=== PATIENT | female | born 1965 | race African-American/Black ===

== ENCOUNTER → 2017-02-10 | Outpatient (CLI) | payer OTHER ==
[~2017-02-10] MED LIST: ADVI200T17 PO; GABA600T PO; MEDR4PAK PO; METH125I2 IM; MULT1TAB84 PO; MULTTAB67 PO; ROBA750T PO
[2017-02-10 08:28] LABS: AUTOMATED NEUTROPHIL # 2.5 TH/MM3 (1.8-7.7); BASOPHIL % 0.4 % (0.0-2.0); EOSINOPHIL % 0.7 % (0.0-4.0); HEMATOCRIT 38.4 % (35.0-46.0); HEMO FLAGS DIFF FINAL; LYMPH % 47.7 % (9.0-44.0); LYMPHOCYTE # 2.8 TH/MM3 (1.0-4.8); MEAN CELL VOLUME 95.2 FL (80.0-100.0); MEAN CORPUSCULAR HEMOGLOBIN 32.5 PG (27.0-34.0); MEAN CORPUSCULAR HGB CONC 34.1 % (32.0-36.0); MONO % 7.8 % (0.0-8.0); NEUT % 43.4 % (16.0-70.0); PLATELET COUNT 148 TH/MM3 (150-450); RED BLOOD COUNT 4.03 MIL/MM3 (4.00-5.30); RED CELL DISTRIBUTION WIDTH 13.4 % (11.6-17.2); WHITE BLOOD COUNT 5.8 TH/MM3 (4.0-11.0)
[2017-02-10 08:58] LABS: ALKALINE PHOSPHATASE 76 U/L (45-117); HDL CHOLESTEROL 84.2 MG/DL (40.0-60.0); TOTAL BILIRUBIN ADULT 0.3 MG/DL (0.2-1.0)
[2017-02-10 09:02] LABS: ALT (GPT) 21 U/L (10-53); ANION GAP 7 MEQ/L (5-15); AST (GOT) 15 U/L (15-37); BICARBONATE 27.9 MEQ/L (21.0-32.0); BLOOD UREA NITROGEN 11 MG/DL (7-18); CHLORIDE 105 MEQ/L (98-107); GLOMERULAR FILTRATION RATE 72 ML/MIN (>89); GLUCOSE,FASTING 109 MG/DL (74-99); LDL CHOLESTEROL 117 MG/DL (0-99); POTASSIUM 4.4 MEQ/L (3.5-5.1); SODIUM (NA) 140 MEQ/L (136-145)
[2017-02-10 12:26] LABS: HEMOGLOBIN A1a 1.3 %; HEMOGLOBIN A1b 0.8 %; HEMOGLOBIN Ao 83.7 %; HEMOGLOBIN F 2.3 %; HEMOGLOBIN P3 3.6 %
== END ==
LOC: CLAB 07:44
PROVIDERS: ATTEND Family Medicine
DX: M19.90 Unspecified osteoarthritis, unspecified site (principal); R73.02 Impaired glucose tolerance (oral); E78.5 Hyperlipidemia, unspecified; E66.01 Morbid (severe) obesity due to excess calories
CPT/HCPCS: 36415; 80053; 80061; 83036; 84443; 85025

== ENCOUNTER 2017-03-03 16:35 | Emergency (ER) | payer OTHER ==
[~2017-03-03] VITALS: Ht 152.4 cm; Wt 132.5 kg
[~2017-03-03 16:35] MED LIST changes: -ADVI200T17 PO; -MEDR4PAK PO; -METH125I2 IM; -MULTTAB67 PO
[2017-03-03 16:37] VITALS: BP 188/101; PULSE 52; RESP 18; TEMP 98.8; O2SAT 99
--- NOTE | 2017-03-03 17:18 | PD ---
HPI . acute on chronic back pain Chief Complaint: Back/ Neck Pain or Injury Time Seen by Provider: 17:17 Travel History International Travel<30 days: No Contact w/Intl Traveler<30days: No Traveled to known affect area: No History of Present Illness HPI 51 yr old female with chronic pain in her back and shoulder here with complaints of acute on chronic pain. Patient tells me that she had seen Dr. Eastman in the community [facility] on February 24, 2017 and she is already taking Robaxin and gabapentin without much relief. She tells me that she had MRI done and that she needs surgery, but she does not want to go under the knife. She denies any bowel or bladder dysfunction. She has no saddle anesthesia. She is accompanied by her mother. She denies any recent injury. PFSH Past Medical History Arthritis: Yes Asthma: Yes (20 YEARS AGO) Anxiety: No Depression: No Heart Rhythm Problems: No Cancer: No Cardiovascular Problems: Yes High Cholesterol: No Chest Pain: No Congestive Heart Failure: No COPD: No Diabetes: Yes (TYPE II) Diminished Hearing: No Endocrine: Yes Genitourinary: No Hepatitis: Yes (HEP B) Hiatal Hernia: No Hypertension: Yes Immune Disorder: No Musculoskeletal: Yes (HERNIATED DICS IN LOWER BACK) Neurologic: No Psychiatric: Yes (CLAUSTROPHOBIC) Reproductive: No Respiratory: Yes (SLEEP APNEA USES C PAP) Sleep Apnea: Yes (USES CPAP) Thyroid Disease: No ?: Not Menopausal: Yes : 3 Para: 2 Miscarriage: 1 Ectopic : Yes Past Surgical History Abdominal Surgery: No Cardiac Surgery: No Section: Yes Ear Surgery: No Endocrine Surgery: No Eye Surgery: No Genitourinary Surgery: No Gynecologic Surgery: Yes Hysterectomy: Yes Joint Replacement: Yes (KNEE LEFT) Oral Surgery: No Pacemaker: No Thoracic Surgery: No Other Surgery: Yes Social History Alcohol Use: No Tobacco Use: Yes (STATES IS QUITTING) Substance Use: No Allergies-Medications (Allergen,Severity, Reaction): Coded Allergies: Aleve (Verified Allergy, Severe, STOMACH BLEEDS, 02/24/17) Aspirin (Verified Allergy, Severe, STOMACH BLEEDS, 02/24/17) Ibuprofen (Verified Allergy, Severe, STOMACH BLEEDS, 02/24/17) Lobster (Verified Allergy, Severe, SOB, SWELLING, 02/24/17) Naprosyn (Verified Allergy, Severe, STOMACH BLEEDS, 02/24/17) Shrimp (Verified Allergy, Severe, SOB, SWELLING, 02/24/17) Toradol (Verified Allergy, Severe, STOMACH BLEEDS, 02/24/17) Tramadol (Verified Allergy, Severe, Bleeding, 02/24/17) Reported Meds & Prescriptions Reported Meds & Active Scripts Active Robaxin (Methocarbamol) 750 Mg Tab 1,500 Mg PO HS Gabapentin 600 Mg Tab 2 Tab PO TID Reported Multivitamin Adults (Multiple Vitamins W/ Minerals) 1 Tab 1 Tab PO DAILY Review of Systems General / Constitutional: No: Fever Eyes: No: Visual changes HENT: No: Headaches Cardiovascular: No: Chest Pain or Discomfort Respiratory: No: Shortness of Breath Gastrointestinal: No: Abdominal Pain Genitourinary: No: Dysuria Musculoskeletal: Positive: Pain (chronic back ) Skin: No Rash Neurologic: No: Weakness Psychiatric: No: Depression Endocrine: No: Polydipsia Hematologic/Lymphatic: No: Easy Bruising Physical Exam Narrative GENERAL: AAO x 3, no acute distress, Well-nourished, well-developed patient. SKIN: Warm and dry. No visible rashes or bruising. HEAD: Normocephalic and atraumatic. EYES: No scleral icterus. No injection or drainage. ENT: No nasal drainage noted. Airway patent. NECK: Supple, trachea midline. No JVD. CARDIOVASCULAR: Regular rate and rhythm without murmurs, gallops, or rubs. RESPIRATORY: Breath sounds equal bilaterally. No accessory muscle use. No rhonchi or rales. GASTROINTESTINAL: visual inspection normal EXTREMITIES: No cyanosis or edema. BACK: Nontender without obvious deformity. PSYCH: AAO x 3, normal affect. Data Data Last Documented VS Vital Signs Date Time Temp Pulse Resp B/P Pulse Ox O2 Delivery O2 Flow Rate FiO2 03/03/17 16:37 98.8 52 18 188/101 99 Room Air MDM Medical Decision Making Medical Screen Exam Complete: Yes Emergency Medical Condition: No Medical Record Reviewed: Yes Differential Diagnosis Acute on chronic pain, lumbar radiculopathy, lumbago, l Narrative Course A medical screening exam was performed: At the time of evaluation the presenting medical condition was determined not to be of an emergent nature. The patient was given the option of receiving additional care, but declined. Patient was given options for additional community resources from which to obtain care. The Patient Has Been advised to seek medical attention for their presenting complaint. The patient has been advised to return to the ER at any time if an emergent condition develops. Patient requesting steroid injection. I advised her to go to community clinic as they could provide this. She will go tomorrow. [facility] and they would be willing to see her tomorrow. Diagnosis Primary Impression: Encounter for medical screening examination Condition: Stable Chelly Rojas March 03, 2017 17:18
[2017-03-04] MEDS ORDERED: MULTTAB67 PO (10:19)
[2017-03-04] MEDS ORDERED: METH125I2 IM (12:38)
[2017-04-09] MEDS ORDERED: MEDR4PAK PO (11:40)
== END 2017-03-03 17:20 | disposition left against medical advice (07) ==
LOC: NEPK 16:35
DX: G89.29 Other chronic pain (principal)
CPT/HCPCS: 99281

== ENCOUNTER → 2017-04-12 | Outpatient (CLI) | payer OTHER ==
[~2017-04-12] MED LIST changes: +MEDR4PAK PO; -MULT1TAB84 PO; +MULTTAB67 PO
--- NOTE | 2017-04-12 09:22 | RADRPT ---
EXAM DATE/TIME: 04/12/2017 08:54 [facility] COMPARISON: No previous studies available for comparison. INDICATIONS : Patient states he fell 4 months ago, neck pain. MEDICAL HISTORY : None. SURGICAL HISTORY : None. ENCOUNTER: Initial ACUITY: 4 - 6 months PAIN SCORE: 7/10 LOCATION: Bilateral Cervical FINDINGS: Five view examination was performed. There is normal alignment and curvature of the vertebral bodies down to the level of C7. No evidence of fracture or subluxation. Vertebral body height is normal. Multilevel degenerative spondylosis most prominently at C4-C7 were minimal disc space loss and anter ior osteophyte formation. There is mild bony neuroforaminal narrowing at C7-T1. Remaining bony neural foramina are maintained. The prevertebral soft tissues are of normal thickness. The atlanto-axial a rticulation is intact. The visualized lung apices are clear. CONCLUSION: 1. No acute fracture or subluxation. 2. Mild multilevel degenerative spondylosis most prominently at C4-C7. Rick Galvan MD on April 12, 2017 at 9:16 Board Certified Radiologist. This report was verified electronically.
--- NOTE | 2017-04-12 09:26 | RADRPT ---
EXAM DATE/TIME: 04/12/2017 09:03 [facility] COMPARISON: No previous studies available for comparison. INDICATIONS : Patient states she fell 4 months ago, unable to lift arm without pain. MEDICAL HISTORY : None. SURGICAL HISTORY : None. ENCOUNTER: Initial ACUITY: 4 - 6 months PAIN SCORE: 7/10 LOCATION: Left Shoulder FINDINGS: Multiple view examination of the left shoulder demonstrates no evidence of fracture or dislocation. The glenohumeral and acromioclavicular joints are maintained. There is normal range of motion betwee n internal and external rotation. Bony mineralization is normal. CONCLUSION: 1. No acute fracture or subluxation. Rick Galvan MD on April 12, 2017 at 9:20 Board Certified Radiologist. This report was verified electronically.
== END ==
LOC: HRAD 08:37
PROVIDERS: ATTEND Family Medicine
DX: M79.602 Pain in left arm (principal); M25.512 Pain in left shoulder; M54.2 Cervicalgia
CPT/HCPCS: 72050; 73030

== ENCOUNTER 2018-01-27 20:52 | Emergency (ER) | payer MEDICAID, OTHER ==
[~2018-01-27] VITALS: Ht 152.4 cm; Wt 138.0 kg
[~2018-01-27 20:52] MED LIST changes: +AMIT50TA3 PO; +DICL1GEL3 TOPICAL
[2018-01-27 21:22] VITALS: BP 155/91; PULSE 60; RESP 20; TEMP 98.1; O2SAT 97
--- NOTE | 2018-01-28 00:04 | RADRPT ---
EXAM DATE/TIME: 01/27/2018 23:35 [facility] COMPARISON: No previous studies available for comparison. INDICATIONS : Patient fell 1 year ago and complains of left sided chest pain. No recent injuries. MEDICAL HISTORY : None. SURGICAL HISTORY : None. ENCOUNTER: Initial ACUITY: 1 year PAIN SCORE: 9/10 LOCATION: chest FINDINGS: PA and lateral views of the chest demonstrate the lungs to be symmetrically aerated without evidence of mass, infiltrate or effusion. The cardiomediastinal contours are unremarkable. Osseous structure s are intact. The scoliotic spine. CONCLUSION: No acute disease. Lorne Maldonado Jr., MD on January 28, 2018 at 0:02 Board Certified Radiologist. This report was verified electronically.
--- NOTE | 2018-01-28 00:04 | RADRPT ---
EXAM DATE/TIME: 01/27/2018 23:38 [facility] COMPARISON: No previous studies available for comparison. INDICATIONS : Patient fell 1 year ago and complains of left humerus pain. No recent injuries. MEDICAL HISTORY : None. SURGICAL HISTORY : None. ENCOUNTER: Initial ACUITY: 1 year PAIN SCORE: 9/10 LOCATION: Left Humerus FINDINGS: Two view examination of the left humerus demonstrates no evidence of fracture or dislocation. Bony m ineralization is normal. The soft tissue structures are intact. CONCLUSION: Unremarkable examination of the left humerus. Lorne Maldonado Jr., MD on January 28, 2018 at 0:03 Board Certified Radiologist. This report was verified electronically.
--- NOTE | 2018-01-28 00:08 | PD ---
HPI Chief Complaint: Fall Time Seen by Provider: 22:58 Travel History International Travel<30 days: No Contact w/Intl Traveler<30days: No Traveled to known affect area: No History of Present Illness HPI 52-year-old female arrives to the ER describing pain in the left arm and left chest wall anteriorly and posteriorly for one year. It started when she had a fall from her house. She reports having undergone physical therapy and multiple x-rays. Evidently an MRI of the cervical spine was performed. The patient has changed primary care providers 3 times now and has been unable to leave a diagnosis to her satisfaction. Today the patient attempted to pull walker out of the transport vehicle and since attempted to do so has had worsening normal left arm and left chest pain. PFSH Past Medical History Arthritis: Yes Asthma: Yes (20 YEARS AGO) Anxiety: No Depression: No Heart Rhythm Problems: No Cancer: No Cardiovascular Problems: Yes High Cholesterol: No Chest Pain: No Congestive Heart Failure: No COPD: No Diabetes: Yes (TYPE II) Patient Takes Glucophage: No Diminished Hearing: No Endocrine: Yes Genitourinary: No Hepatitis: Yes (HEP B) Hiatal Hernia: No Hypertension: Yes Immune Disorder: No Musculoskeletal: Yes (HERNIATED DICS IN LOWER BACK) Neurologic: No Psychiatric: Yes (CLAUSTROPHOBIC) Reproductive: No Respiratory: Yes (SLEEP APNEA USES C PAP) Sleep Apnea: Yes (USES CPAP) Thyroid Disease: No ?: Not Menopausal: Yes : 3 Para: 2 Miscarriage: 1 Ectopic : Yes Past Surgical History Abdominal Surgery: No Cardiac Surgery: No Section: Yes Ear Surgery: No Endocrine Surgery: No Eye Surgery: No Genitourinary Surgery: No Gynecologic Surgery: Yes Hysterectomy: Yes Joint Replacement: Yes (KNEE LEFT) Oral Surgery: No Pacemaker: No Thoracic Surgery: No Other Surgery: Yes Social History Alcohol Use: No Tobacco Use: Yes (STATES IS QUITTING) Substance Use: No Allergies-Medications (Allergen,Severity, Reaction): Coded Allergies: aspirin (Unverified Allergy, Severe, STOMACH BLEEDS, 01/27/18) ibuprofen (Unverified Allergy, Severe, STOMACH BLEEDS, 01/27/18) ketorolac (Unverified Allergy, Severe, STOMACH BLEEDS, 01/27/18) naproxen (Unverified Allergy, Severe, STOMACH BLEEDS, 01/27/18) shellfish derived (Unverified Allergy, Severe, SOB, SWELLING, 01/27/18) shrimp (Unverified Allergy, Severe, SOB, SWELLING, 01/27/18) tramadol (Unverified Allergy, Severe, Bleeding, 01/27/18) Reported Meds & Prescriptions Reported Meds & Active Scripts Active Amitriptyline (Amitriptyline HCl) 50 Mg Tab 50 Mg PO HS Diclofenac Topical 3 % Gel 1 Applic TOPICAL BID Medrol Dosepak (Methylprednisolone) 4 Mg Dspk 4 Mg PO DIRECTED Per Pharmacist direction Robaxin (Methocarbamol) 750 Mg Tab 1,500 Mg PO HS Gabapentin 600 Mg Tab 2 Tab PO TID Reported Multiple Vitamin 1 Tab 1 Tab PO DAILY Review of Systems Except as stated in HPI: all other systems reviewed are Neg General / Constitutional: No: Fever Eyes: No: Blurred Vision Cardiovascular: No: Irregular Rhythm Physical Exam Narrative GENERAL: 52-year-old female pleasant well-nourished well-developed mild to moderate distress secondary to pain and/or anxiety Vital Signs Date Time Temp Pulse Resp B/P (MAP) Pulse Ox O2 Delivery O2 Flow Rate FiO2 01/27/18 21:22 98.1 60 20 155/91 (112) 97 SKIN: Warm and dry. HEAD: Atraumatic. Normocephalic. EYES: Pupils equal and round. No scleral icterus. No injection or drainage. ENT: No nasal bleeding or discharge. Mucous membranes pink and moist. NECK: Trachea midline. No JVD. CARDIOVASCULAR: Regular rate and rhythm. 2+ radial artery pulse bilaterally. RESPIRATORY: Involving the anterior chest and posterior chest is no significant overlying skin abnormality or focus of tenderness. GASTROINTESTINAL: Abdomen soft, non-tender, nondistended. Hepatic and splenic margins not palpable. MUSCULOSKELETAL: Extremities without clubbing, cyanosis, or edema. No obvious deformities. NEUROLOGICAL: Awake and alert. No obvious cranial nerve deficits. Motor grossly within normal limits. Five out of 5 muscle strength in the arms and legs. Normal speech. PSYCHIATRIC: Appropriate mood and affect; insight and judgment normal. Data Data Last Documented VS Vital Signs Date Time Temp Pulse Resp B/P (MAP) Pulse Ox O2 Delivery O2 Flow Rate FiO2 01/27/18 21:22 98.1 60 20 155/91 (112) 97 Orders Orders Chest, Pa & Lat (01/27/18 23:17) Humerus (Min 2vws) (01/27/18 ) Ed Discharge Order (01/28/18 00:09) [facility] Medical Decision Making Medical Screen Exam Complete: Yes Emergency Medical Condition: Yes Medical Record Reviewed: Yes Differential Diagnosis Scoliosis, rib contusion, muscle strain, myofascial strain Narrative Course Last Impressions Chest X-Ray 01/27/18 2317 Signed Impressions: Service Date/Time: January 23:35 - CONCLUSION: No acute disease. Lorne Maldonado Jr., MD Humerus X-Ray 01/27/18 0000 Signed Impressions: Service Date/Time: January 23:38 - CONCLUSION: Unremarkable examination of the left humerus. Lorne Maldonado Jr., MD The patient is resting comfortably and feels better, is alert and in no distress. The patients results and examination findings were discussed. The repeat examination is unremarkable and benign. The history, exam, diagnostic testing, and current condition do not suggest any significant pathology to warrant further testing, continued ED treatment, admission, or surgical evaluation at this point. The vital signs have been stable. The patient does not have uncontrollable pain, intractable vomiting, or other significant symptoms. The patient's condition is stable and appropriate for discharge. The patient will pursue further outpatient evaluation with a primary care physician or other designated or consulting physician as indicated in the discharge instructions. The patient expressed understanding and was agreeable with this plan. Diagnosis Primary Impression: Left shoulder pain Qualified Codes: M25.512 - Pain in left shoulder; G89.29 - Other chronic pain Additional Impression: Musculoskeletal chest pain Referrals: Brian Pedroza Jr., MD call for appointment Primary Care Physician call for appointment Med/Other Pt SpecificInfo: No Change to Meds Disposition: 01 DISCHARGE HOME Condition: Stable Lance Blanco MD Jan 28, 2018 00:08
== END 2018-01-28 00:50 | disposition home or self-care (01) ==
LOC: NEPD 20:52
DX: M25.512 Pain in left shoulder (principal); G89.29 Other chronic pain; R07.89 Other chest pain; E11.9 Type 2 diabetes mellitus without complications; I10 Essential (primary) hypertension; G47.30 Sleep apnea, unspecified; Z72.0 Tobacco use; Z87.39 Personal history of other diseases of the musculoskeletal system and connective tissue; Z86.79 Personal history of other diseases of the circulatory system
CPT/HCPCS: 71046; 73060; 99284